=== PATIENT | female | born 1995 | race American Indian/Alaskan Native ===

== ENCOUNTER 2018-12-23 08:46 | Emergency (ER) | payer SELFPAY ==
[2018-12-23] MEDS ORDERED: DECADRON IM ONE (09:28)
--- NOTE | 2018-12-23 09:33 | Emergency Department Report ---
ED ENT HPI - General Chief complaint: Sore Throat Stated complaint: TONSILS WHITE SPOTS/LIZA Time Seen by Provider: 12/23/18 09:10 Source: patient Mode of arrival: Ambulatory Limitations: No Limitations - History of Present Illness Initial comments: Patient is a 23-year-old female presents to emergency room with complaints of a sore throat that began last night. she has associated pain with swallowing and chills. pt states she saw white spots on her tonsils. She states she has also been congested. She denies any cough, ear pain, any other symptoms. She has had a sick contact with a child who had similar symptoms. She denies any past medical history. She denies any allergies medications. she is currently on her menstrual cycle. - Related Data Previous Rx's Medication Instructions Recorded Last Taken Type Amoxicillin [Trimox] 500 mg PO BID 10 Days #40 capsule 12/23/18 Unknown Rx Nystas/Diphen/Xyl Visc/Mylanta 30 ml MM TID PRN #480 ml 12/23/18 Unknown Rx [Magic Mouthwash] guaiFENesin ER [Mucinex ER] 600 mg PO Q12H #14 tablet.er 12/23/18 Unknown Rx Allergies Allergy/AdvReac Type Severity Reaction Status Date / Time No Known Allergies Allergy Unverified 12/23/18 08:51 ED Dental HPI - General Chief complaint: Sore Throat Stated complaint: TONSILS WHITE SPOTS/LIZA Time Seen by Provider: 12/23/18 09:10 Source: patient Mode of arrival: Ambulatory Limitations: No Limitations - Related Data Previous Rx's Medication Instructions Recorded Last Taken Type Amoxicillin [Trimox] 500 mg PO BID 10 Days #40 capsule 12/23/18 Unknown Rx Nystas/Diphen/Xyl Visc/Mylanta 30 ml MM TID PRN #480 ml 12/23/18 Unknown Rx [Magic Mouthwash] guaiFENesin ER [Mucinex ER] 600 mg PO Q12H #14 tablet.er 12/23/18 Unknown Rx Allergies Allergy/AdvReac Type Severity Reaction Status Date / Time No Known Allergies Allergy Unverified 12/23/18 08:51 ED Review of Systems ROS: Stated complaint: TONSILS WHITE SPOTS/LIZA Other details as noted in HPI Comment: All other systems reviewed and negative ED Past Medical Hx - Past Medical History Previous Medical History?: No - Surgical History Past Surgical History?: No - Social History Smoking Status: Current Every Day Smoker Substance Use Type: None - Medications Home Medications: Home Medications Medication Instructions Recorded Confirmed Last Taken Type Amoxicillin [Trimox] 500 mg PO BID 10 Days #40 capsule 12/23/18 Unknown Rx Nystas/Diphen/Xyl Visc/Mylanta 30 ml MM TID PRN #480 ml 12/23/18 Unknown Rx [Magic Mouthwash] guaiFENesin ER [Mucinex ER] 600 mg PO Q12H #14 tablet.er 12/23/18 Unknown Rx ED Physical Exam - General Limitations: No Limitations General appearance: alert, in no apparent distress - Head Head exam: Present: atraumatic, normocephalic - Eye Eye exam: Present: normal appearance - ENT ENT exam: Present: mucous membranes moist, TM's normal bilaterally, normal external ear exam, other (tonsillar hypertrophy with tonsillar exudates, uvula is midline, no uvular shift, no uvular edema) - Respiratory Respiratory exam: Present: normal lung sounds bilaterally. Absent: respiratory distress, wheezes, rales, rhonchi, stridor, chest wall tenderness, accessory muscle use, decreased breath sounds, prolonged expiratory - Cardiovascular Cardiovascular Exam: Present: regular rate, normal rhythm, normal heart sounds. Absent: systolic murmur, diastolic murmur, rubs, gallop - Neurological Exam Neurological exam: Present: alert, oriented X3 - Psychiatric Psychiatric exam: Present: normal affect, normal mood - Skin Skin exam: Present: warm, dry, intact ED Course Vital Signs 12/23/18 12/23/18 08:53 09:43 Temperature 99.3 F Pulse Rate 123 H 98 H Respiratory 18 18 Rate Blood Pressure 150/100 Blood Pressure 146/94 [Left] O2 Sat by Pulse 97 98 Oximetry ED Medical Decision Making - Medical Decision Making Patient is a 23-year-old female presents to emergency room with complaints of a sore throat that began last night. she has associated pain with swallowing and chills. pt states she saw white spots on her tonsils. She states she has also been congested. She denies any cough, ear pain, any other symptoms. She has had a sick contact with a child who had similar symptoms. She denies any past medical history. She denies any allergies medications. she is currently on her menstrual cycle. initial vitals with elevated blood pressure and tachycardia, improved upon repeat. on exam: tonsillar hypertrophy with tonsillar exudates, uvula is midline, no uvular shift, no uvular edema. examination consistent with tonsillitis. pt given dexamethasone injection. given prescription for amoxicillin and magic mouthwash and mucinex. discussed with pt to please take medication as prescribed. May use warm saltwater gargles for sore throat. follow up with a primary care doctor in the next 2-3 days. please discuss with the primary care doctor the elevation in your blood pressure during today's visit. eat a low-sodium diet. Return to the emergency room for any new or worsening symptoms. Critical care attestation.: If time is entered above; I have spent that time in minutes in the direct care of this critically ill patient, excluding procedure time. ED Disposition Clinical Impression: Tonsillitis Disposition: [id number] TO HOME OR SELFCARE Is pt being admited?: No Does the pt Need Aspirin: No Condition: Stable Instructions: Tonsillitis (ED) Additional Instructions: Please take medication as prescribed. May use warm saltwater gargles for sore throat. follow up with a primary care doctor in the next 2-3 days. please discuss with the primary care doctor the elevation in your blood pressure during today's visit. eat a low-sodium diet. Return to the emergency room for any new or worsening symptoms. Prescriptions: Amoxicillin [Trimox] 500 mg PO BID 10 Days #40 capsule Nystas/Diphen/Xyl Visc/Mylanta [Magic Mouthwash] 30 ml MM TID PRN #480 ml PRN Reason: sore throat guaiFENesin ER [Mucinex ER] 600 mg PO Q12H #14 tablet.er Referrals: [facility] [Provider Group] - 2-3 Days EMBER LEE MD [Staff Physician] - 2-3 Days SCOTT ARANDA DO [Staff Physician] - 2-3 Days Time of Disposition: 09:31 Print Language: THAI
[2018-12-23 09:44] VITALS: BP 146/94
== END 2018-12-23 09:43 | disposition home or self-care (01) ==
LOC: ED 08:46
DX: J03.90 Acute tonsillitis, unspecified (principal); F17.200 Nicotine dependence, unspecified, uncomplicated
CPT/HCPCS: 96372; 99282; J1100